=== PATIENT | male | born 2005 | race Caucasian/White ===

== ENCOUNTER 2025-03-13 09:47 | Emergency (ER) | payer OTHER ==
[~2025-03-13] VITALS: Ht 188 cm; Wt 87.6 kg
[2025-03-13 10:31] VITALS: BP 129/61; TEMP 97.3; O2SAT 98
== END 2025-03-13 10:34 | disposition home or self-care (01) ==
LOC: M ED 09:47
DX: H72.822 Total perforations of tympanic membrane, left ear (principal); Z91.013 Allergy to seafood

== ENCOUNTER 2025-03-14 10:28 | Emergency (ER) | payer OTHER ==
[~2025-03-14] VITALS: Ht 188 cm; Wt 88.2 kg
[2025-03-14] MEDS: ACETAMINOPHEN 325 MG TAB PO ONE (10:55)
[2025-03-14 12:20] VITALS: BP 120/59; TEMP 97.2; O2SAT 97
== END 2025-03-14 12:27 | disposition home or self-care (01) ==
LOC: M ED 10:28
DX: J06.9 Acute upper respiratory infection, unspecified (principal); Z91.013 Allergy to seafood